=== PATIENT | female | born 1945 | race Hispanic/Latino ===

== ENCOUNTER 2024-06-21 18:38 | Emergency (ER) | payer MEDICARE ==
[~2024-06-21] VITALS: Ht 157.5 cm; Wt 61.7 kg
[2024-06-21 19:17] VITALS: PULSE 72; RESP 18; TEMP 97.8
[2024-06-21] MEDS ORDERED: IOPAMIDOL 370 MG/ML 100 ML INFUS..BTL INJ ONE (20:20)
[2024-06-21 23:10] VITALS: BP 173/84; PULSE 76; RESP 18; TEMP 97.8; O2SAT 98
== END 2024-06-21 23:10 | disposition home or self-care (01) ==
LOC: FSED 19:32
DX: R10.31 Right lower quadrant pain (principal); E78.00 Pure hypercholesterolemia, unspecified
CPT/HCPCS: 74177; 80053; 81003; 85025; 99283; Q9967